=== PATIENT | male | born 1995 | race Caucasian/White ===

== ENCOUNTER 2017-08-28 23:34 | Emergency (ER) | payer SELFPAY ==
[2017-08-29] MEDS ORDERED: OXYCODONE-ACETAMINOPHEN 5-325 MG TABLET PO ONE (01:11)
[2017-08-29] MEDS ORDERED: ONDANSETRON 4 MG TAB.RAPDIS PO ONE (01:11)
[2017-08-29] MEDS ORDERED: NORMAL SALINE 1000 ML 1,000 ML IV ONE (01:12)
--- NOTE | 2017-08-29 01:13 | ER Document Report ---
ED Medical Screen (RME) - General Chief Complaint: Back pain Stated Complaint: BACK PAIN Time Seen by Provider: 08/29/17 01:11 Mode of Arrival: Wheelchair Information source: Patient Notes: Patient presents complaining of right upper quadrant pain that radiates through to his back up to his shoulder for the past 5 days. Patient reports nausea and vomiting 3 episodes today. No fever. Patient does report decreased urine output and states that his urine was very dark in color. TRAVEL OUTSIDE OF THE [place] IN LAST 30 DAYS: No Past Medical History Renal/ Medical History: Denies: Hx Peritoneal Dialysis Physical Exam - Vital signs Vitals: Temp Pulse Resp BP Pulse Ox 98.7 F 118 H 18 143/100 H 98 08/29/17 00:34 08/29/17 00:34 08/29/17 00:34 08/29/17 00:34 08/29/17 00:34 - Abdominal Tenderness: Tender - Right upper quadrant, Guarding Course - Vital Signs Vital signs: Temp Pulse Resp BP Pulse Ox 98.7 F 118 H 18 143/100 H 98 08/29/17 00:34 08/29/17 00:34 08/29/17 00:34 08/29/17 00:34 08/29/17 00:34
[2017-08-29 02:00] LABS: ABSOLUTE BASOPHILS # (AUTO) 0.1 10^3/uL (0.0-0.2); ABSOLUTE EOSINOPHILS # (AUTO) 0.4 10^3/uL (0.0-0.6); ABSOLUTE LYMPHOCYTES (AUTO) 4.1 10^3/uL (0.5-4.7); ABSOLUTE MONOCYTES (AUTO) 0.7 10^3/uL (0.1-1.4); ABSOLUTE NEUT (AUTO) 6.2 10^3/uL (1.7-8.2); EOSINOPHILS % (AUTO) 3.1 % (0-6); HEMATOCRIT 44.9 % (37.9-51.0); HEMOGLOBIN 15.9 g/dL (13.5-17.0); HGB HCT DIFFERENCE 2.8; MEAN CORPUSCULAR HEMOGLOBIN 30.9 pg (27.0-33.4); MEAN CORPUSCULAR HGB CONC 35.5 g/dL (32.0-36.0); MEAN CORPUSCULAR VOLUME 87 fl (80-97); MONOCYTES % (AUTO) 6.5 % (3-13); RED BLOOD COUNT 5.16 10^6/uL (4.35-5.55); RED CELL DISTRIBUTION WIDTH 13.6 % (11.5-14.0); SEGMENTED NEUTROPHILS % (AUTO) 53.4 % (42-78); WHITE BLOOD COUNT 11.5 10^3/uL (4.0-10.5)
[2017-08-29] MEDS ORDERED: ONDANSETRON HCL INJ/PF 4 MG/2 ML SDV IV ONE (02:03)
[2017-08-29] MEDS ORDERED: MORPHINE SULFATE 10 MG/ML INJ IV ONE (02:03)
[2017-08-29 02:12] LABS: ALANINE AMINOTRANSFERASE 53 U/L (21-72); ALBUMIN 4.9 g/dL (3.5-5.0); ALKALINE PHOSPHATASE 69 U/L (38-126); ANION GAP 14 (5-19); APPEARANCE,URINE SLIGHTLY-CLOUDY; ASPARTATE AMINO TRANSFERASE 31 U/L (17-59); BILIRUBIN,DIRECT 0.4 mg/dL (0.0-0.4); BILIRUBIN,TOTAL 0.4 mg/dL (0.2-1.3); BILIRUBIN,URINE NEGATIVE (NEGATIVE); BLOOD UREA NITROGEN 11 mg/dL (7-20); CALCIUM 10.1 mg/dL (8.4-10.2); CARBON DIOXIDE 27 mmol/L (22-30); CHLORIDE 104 mmol/L (98-107); GLUCOSE 105 mg/dL (75-110); GLUCOSE, URINE NEGATIVE (NEGATIVE); KETONES,URINE NEGATIVE (NEGATIVE); LEUKOCYTE ESTERASE,URINE SMALL (NEGATIVE); LIPASE 310.3 U/L (23-300); NITRITE,URINE NEGATIVE (NEGATIVE); POTASSIUM 4.9 mmol/L (3.6-5.0); PROTEIN,URINE 30 mg/dL (NEGATIVE); SODIUM 145.3 mmol/L (137-145); TOTAL PROTEIN 8.1 g/dL (6.3-8.2); UROBILINOGEN,URINE NEGATIVE mg/dL (<2.0)
--- NOTE | 2017-08-29 02:57 | ER Document Report ---
ED General - General Chief Complaint: Back Pain Stated Complaint: BACK PAIN Time Seen by Provider: 08/29/17 01:11 Mode of Arrival: Wheelchair Notes: Patient is a 21-year-old transgender originally female, but is now male and takes testosterone shots. He presents with complaint of pain that starts in his right back and it radiates around his right rib cage into his right upper quadrant of his abdomen. Some nausea vomiting and diarrhea. Pain does not seem to be affected by eating. He says pain is much worse with movements. Said when the pain comes on it is severe and uncomfortable. No fevers associated with this. No difficulty breathing. No associated rashes. No associated trauma. TRAVEL OUTSIDE OF THE [place] IN LAST 30 DAYS: No - Related Data Allergies/Adverse Reactions: baclofen Allergy (Verified 08/29/17 01:55) erythromycin base Allergy (Verified 08/29/17 01:55) Past Medical History - General Information source: Patient - Social History Smoking Status: Unknown if Ever Smoked Frequency of alcohol use: None Drug Abuse: None Family History: Reviewed & Not Pertinent Patient has suicidal ideation: No Patient has homicidal ideation: No Renal/ Medical History: Denies: Hx Peritoneal Dialysis Review of Systems - Review of Systems Notes: My Normal Review Basic REVIEW OF SYSTEMS: CONSTITUTIONAL : Denies fever, chills, or sweats. Denies recent illness. EENT: Denies eye, ear, throat, or mouth pain or symptoms. Denies nasal or sinus congestion. CARDIOVASCULAR: Denies chest pain. RESPIRATORY: Denies cough, cold, or chest congestion. Denies shortness of breath, difficulty breathing, or wheezing. GASTROINTESTINAL: Upper quadrant abdominal pain. Denies nausea, vomiting, or diarrhea. Denies constipation. Last BM: GENITOURINARY: Denies difficulty urinating, painful urination, burning, frequency, or blood in urine. FEMALE GENITOURINARY: Denies vaginal bleeding, abnormal or irregular periods. LMP: MUSCULOSKELETAL: Pain in right back that radiates around the right flank. SKIN: Denies rash or skin lesions. NEUROLOGICAL: Denies altered mental status or loss of consciousness. Denies headache. Denies weakness or paralysis or loss of use of either side. Denies problems with gait or speech. Denies sensory or motor loss. ALL OTHER SYSTEMS REVIEWED AND NEGATIVE. Physical Exam - Vital signs Vitals: Temp Pulse Resp BP Pulse Ox 98.7 F 118 H 18 143/100 H 98 08/29/17 00:34 08/29/17 00:34 08/29/17 00:34 08/29/17 00:34 08/29/17 00:34 - Notes Notes: General Appearance: Well nourished, alert, cooperative, no acute distress, moderate obvious discomfort. Vitals: reviewed, See vital signs table. Head: no swelling or tenderness to the head Eyes: PERRL, EOMI, Conjuctiva clear Mouth: No decreasd moisture Lungs: No wheezing, No rales, No rhonci, No accessory muscle use, good air exchange bilaterally. Heart: Normal rate, Regular rythm, No murmur, no rub Abdomen: Normal BS, soft, No rigidity, very mild right upper quadrant abdominal tenderness palpation. Remainder of abdomen is nontender., No guarding, no rebound, no abdominal masses, no organomegaly Back: Patient has large amount of pain to palpation over the right thoracic paraspinal musculature. This pain continues to be easily reproducible to palpation around the right rib cage. No bruising or swelling or rashes to the right rib cage or back. Extremities: strength 5/5 in all extremities, good pulses in all extremities, no swelling or tenderness in the extremities, no edema. Skin: warm, dry, appropriate color, no rash Neuro: speech clear, oriented x 3, normal affect, responds appropriately to questions. Course - Re-evaluation Re-evalutation: 08/29/17 05:50 Patient's pain on exam does seem very consistent with that of muscular skeletal pain. I did obtain an ultrasound of the upper quadrant she had a little bit of pain rating into the right upper quadrant and I want to make sure it is not his gallbladder causing pain rating to his back. Ultrasound was negative. Laboratory evaluation does not suggest gallbladder at this time. Urinalysis did show some blood and therefore did obtain CT scan to rule out stone. CT scan was negative. I do not think he has urinary tract infection that he has [place] no dysuria. The pain again is very easily reproducible to palpation as all the way up and down the right side of his thoracic spine. He has had this pain many times over the course of the last year. 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 He does have to pick him up and lift him and move him around. 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 This time we will give the patient some pain medication to take. I encouraged him to rest over the next few days. I encouraged him return to ER if his fevers, worsening pain, vomiting, or feels unwell. Patient agrees with plan and will be discharged home. Dictation of this chart was performed using voice recognition software; therefore, there may be some unintended grammatical errors. - Vital Signs Vital signs: Temp Pulse Resp BP Pulse Ox 98.7 F 118 H 21 H 125/92 H 100 08/29/17 00:34 08/29/17 00:34 08/29/17 04:01 08/29/17 04:00 08/29/17 04:01 - Laboratory Result Diagrams: 08/29/17 01:40 08/29/17 01:40 Laboratory results interpreted by me: 08/29/17 08/29/17 08/29/17 01:40 01:40 01:40 WBC 11.5 H Sodium 145.3 H Lipase 310.3 H Urine Protein 30 H Urine Blood SMALL H Ur Leukocyte Esterase SMALL H Urine Ascorbic Acid 40 H Discharge - Discharge Clinical Impression: Fatty liver Back pain Qualifiers: Back pain location: thoracic back pain Chronicity: acute Back pain laterality: right Qualified Code(s): M54.6 - Pain in thoracic spine Abdominal pain Qualifiers: Abdominal location: right upper quadrant Qualified Code(s): R10.11 - Right upper quadrant pain Condition: Good Disposition: HOME, SELF-CARE Additional Instructions: Please take the pain medications as prescribed. Please follow up with your doctor in 3 days. Please return to the ER immediately if you have fevers, worsening pain, difficulty urinating, or if you feel like you are worsening. Prescriptions: Metaxalone [Skelaxin 800 mg Tablet] 800 mg PO ASDIR PRN #20 tablet PRN Reason: Naproxen [Naprosyn 250 mg Tablet] 250 mg PO BID #20 tablet Forms: Return to Work
--- NOTE | 2017-08-29 03:08 | RADIOLOGY REPORT (SQ) ---
EXAM DESCRIPTION: U/S ABDOMEN LIMITED W/O DOP CLINICAL HISTORY: 21 years, Male, RUQ, r flank pain COMPARISON: None. TECHNIQUE: Scale, color Doppler and spectral Doppler waveform analysis techniques were all utilized to perform this examination. LIMITATIONS: None. FINDINGS: No hyperechoic mobile shadowing stones in the incompletely distended gallbladder. Suspect pseudo-gallbladder wall thickening. The common duct is normal and measures 3.1 mm in greatest diameter. No intra or extrahepatic biliary ductal dilatation. Diffuse hepatic fatty infiltration greatly decreases evaluation of the liver. Greatest sagittal dimension of the right hepatic lobe measures 17 cm. The right kidney is normal and measures 10.3 cm x 4.9 cm in greatest sagittal dimension. The pancreas is obscured by bowel gas. There is normal hepatopedal blood flow in the portal vein using color Doppler and spectral Doppler waveform analysis techniques. The abdominal aorta and inferior vena cava are obscured by bowel gas. IMPRESSION: 1. No ultrasonographic evidence of cholelithiasis or cholecystitis. 2. Diffuse hepatic fatty infiltration which greatly limits fine evaluation of the liver. 3. No intra or extrahepatic biliary ductal dilatation. 2011 [employer]- All Rights Reserved
[2017-08-29 04:03] VITALS: BP 125/92
--- NOTE | 2017-08-29 04:35 | RADIOLOGY REPORT (SQ) ---
EXAMINATION: NONCONTRAST ABDOMEN AND PELVIC CT EXAMINATION. REFERRAL DIAGNOSIS: Right lower quadrant abdominal pain. COMPARISONS: Today's limited abdomen ultrasound examination. PROCEDURE: Using low-dose helical technique, thin section axial images were performed through the abdomen and pelvis without the administration of intravenous or oral contrast material. FINDINGS: Punctate 1 mm or less nonobstructing calcification in the right upper renal collecting system. Several other very small linear radiodensities in the right renal collecting system. 5 punctate 1 mm or less nonobstructing calcified stones in the left renal collecting system. No urinary system obstruction or evidence of pyelonephritis on this noncontrast examination. No evidence of appendicitis, diverticulitis, inflammatory bowel disease, bowel obstruction, retroperitoneal hemorrhage, ascites or intra-abdominal abscess on this noncontrast examination. The liver, spleen, fluid-filled gallbladder, pancreas and great vessels are grossly normal. Bones are normal. Lung bases are normal. IMPRESSION: 1. Punctate nonobstructing bilateral renal collecting system stones as described above. No evidence of urinary system obstruction or pyelonephritis on this noncontrast examination. 2. No evidence of appendicitis, diverticulitis or inflammatory bowel disease on this noncontrast examination. If clinical concern persists, post intravenous contrast and post oral contrast abdomen and pelvic CT examination should be considered for further evaluation as clinically warranted.
[2017-08-29] MEDS ORDERED: TRAMADOL HCL 50 MG TABLET PO ONE (04:44)
[2017-08-29] MEDS ORDERED: HYDROCODONE/ACETAMINOPHEN 5-325 MG 6 TAB/DSPK PO PRN (04:46)
== END 2017-08-29 05:02 | disposition home or self-care (01) ==
LOC: ER 23:34
DX: K76.0 Fatty (change of) liver, not elsewhere classified (principal); M54.6 Pain in thoracic spine; R10.11 Right upper quadrant pain; R11.2 Nausea with vomiting, unspecified; R19.7 Diarrhea, unspecified
CPT/HCPCS: 99284; 96361; 96374; 96375; 36415; 87086; 83690; 85025; 80053; 81001; 76705; 76380; J2270; J2405; J7030

== ENCOUNTER 2017-09-01 17:52 | Emergency (ER) | payer SELFPAY ==
[2017-09-01 18:10] VITALS: BP 141/105
[2017-09-01] MEDS ORDERED: OXYCODONE-ACETAMINOPHEN 5-325 MG TABLET PO ONE (18:57)
--- NOTE | 2017-09-01 18:59 | ER Document Report ---
HPI - HPI Patient complains to provider of: Hand injury Onset: Just prior to arrival Onset/Duration: Sudden Quality of pain: Sharp Pain Level: 5 Context: Patient states that he accidentally closed the head of his vehicle on his right hand. Patient is right-hand dominant. Patient complains of pain with moving his fingers and closing his hand into a fist. Associated Symptoms: Nausea, Other - Right hand injury. denies: Vomiting Exacerbated by: Movement Relieved by: Denies Similar symptoms previously: No Recently seen / treated by doctor: No - ROS ROS below otherwise negative: Yes Systems Reviewed and Negative: Yes All other systems reviewed and negative - GASTROINTESTINAL Gastrointestinal: REPORTS: Nausea - MUSCULOSKELETAL Musculoskeletal: REPORTS: Extremity pain, Swelling - DERM Skin Color: Ecchymosis Skin Problems: None Past Medical History - General Information source: Patient - Social History Smoking Status: Never Smoker Frequency of alcohol use: None Drug Abuse: None Occupation: Retail Lives with: Spouse/Significant other Family History: Reviewed & Not Pertinent Patient has suicidal ideation: No Patient has homicidal ideation: No - Medical History Medical History: Negative Renal/ Medical History: Denies: Hx Peritoneal Dialysis Past Surgical History: Reports: Other - Breast surgery with revision Vertical Provider Document - CONSTITUTIONAL Agree With Documented VS: Yes Exam Limitations: No Limitations General Appearance: WD/WN, No Apparent Distress - INFECTION CONTROL TRAVEL OUTSIDE OF THE [place] IN LAST 30 DAYS: No - HEENT HEENT: Atraumatic - NECK Neck: Normal Inspection - RESPIRATORY Respiratory: No Respiratory Distress O2 Sat by Pulse Oximetry: 100 - CARDIOVASCULAR Pulses: Normal: Radial - MUSCULOSKELETAL/EXTREMETIES Musculoskeletal/Extremeties: MAEW, Tender - Right hand tenderness over right third, fourth and fifth MCP joint, patient with mild swelling and ecchymosis to dorsal aspect of right hand., Edema, Eccymosis - NEURO Level of Consciousness: Awake, Alert, Appropriate Motor/Sensory: No Motor Deficit - DERM Integumentary: Warm, Dry, No Rash Course - Vital Signs Vital signs: Temp Pulse Resp BP Pulse Ox 98.1 F 104 H 20 141/105 H 100 09/01/17 18:07 09/01/17 18:07 09/01/17 18:07 09/01/17 18:07 09/01/17 18:07 - Diagnostic Test Radiology reviewed: Image reviewed, Reports reviewed Discharge - Discharge Clinical Impression: Crush injury Hand contusion Qualifiers: Encounter type: initial encounter Laterality: right Qualified Code(s): S60.221A - Contusion of right hand, initial encounter Condition: Stable Disposition: HOME, SELF-CARE Instructions: Contusion ([facility]), Crush Injury ([facility]), Ice & Elevation ([facility]), Oral Narcotic Medication ([facility]) Additional Instructions: Return immediately for any new or worsening symptoms Followup with your primary care provider, call tomorrow to make a followup appointment Follow-up with orthopedic doctor for any continued pain or problems Prescriptions: Oxycodone HCl/Acetaminophen [Percocet 5-325 mg Tablet] 1 tab PO ASDIR PRN #8 tablet PRN Reason: Referrals: PARVEZ GATES DO [ACTIVE STAFF] - Follow up as needed
--- NOTE | 2017-09-01 19:42 | RADIOLOGY REPORT (SQ) ---
EXAM DESCRIPTION: HAND RIGHT 3 VIEWS COMPLETED DATE/TIME: 09/01/2017 7:31 pm REASON FOR STUDY: mayers closed on hand, r 3,4, 5 MCP pain COMPARISON: None. EXAM PARAMETERS: NUMBER OF VIEWS: Three views. TECHNIQUE: AP, lateral and oblique radiographic images acquired of the right hand. LIMITATIONS: None. FINDINGS: MINERALIZATION: Normal. BONES: No acute fracture or dislocation. No worrisome bone lesions. JOINTS: No effusions. SOFT TISSUES: Dorsal soft tissue swelling at the level of the metacarpal heads. OTHER: No other significant finding. IMPRESSION: SOFT TISSUE SWELLING WITHOUT FRACTURE. TECHNICAL DOCUMENTATION: JOB ID: [id number] [employer]- All Rights Reserved
== END 2017-09-01 20:00 | disposition home or self-care (01) ==
LOC: ER 17:52
DX: S60.221A Contusion of right hand, initial encounter (principal); M79.641 Pain in right hand; X58.XXXA Exposure to other specified factors, initial encounter
CPT/HCPCS: 99283

== ENCOUNTER 2017-11-13 00:52 | Emergency (ER) | payer SELFPAY ==
[2017-11-13] MEDS ORDERED: NORMAL SALINE 1000 ML 1,000 ML IV ONE (01:12)
[2017-11-13] MEDS ORDERED: ONDANSETRON HCL INJ/PF 4 MG/2 ML SDV IV ONE (01:12)
[2017-11-13] MEDS ORDERED: KETOROLAC TROMETHAMINE INJ/PF 30 MG/1 ML SDV IV ONE (01:12)
--- NOTE | 2017-11-13 01:16 | ER Document Report ---
ED GI/ - General Chief Complaint: Nausea/Vomiting/Diarrhea Stated Complaint: NAUSEA;VOMITING Time Seen by Provider: 11/13/17 01:04 Notes: Patient is a 22-year-old male that comes emergency department for chief complaint of mid abdominal pain, vomiting, and diarrhea. He states over the past day he has vomited about 5 times, he denies blood in vomit or stool, denies fever, he does report body aches. Symptoms started 5 days ago, he states he was initially evaluated in [place] before coming here, states he was not put on any medications, states they told him it might be food poisoning. He denies any suspicious foods, denies recent antibiotics, denies any daily medications. He reports infrequent alcohol, reports marijuana, denies any other recreational drugs. TRAVEL OUTSIDE OF THE [place] IN LAST 30 DAYS: No - Related Data Allergies/Adverse Reactions: baclofen Allergy (Verified 08/29/17 01:55) erythromycin base Allergy (Verified 08/29/17 01:55) Past Medical History - General Information source: Patient - Social History Smoking Status: Never Smoker Frequency of alcohol use: None Drug Abuse: None Lives with: Family Family History: Reviewed & Not Pertinent - Medical History Medical History: Negative Renal/ Medical History: Denies: Hx Peritoneal Dialysis Past Surgical History: Reports: Other - Breast surgery with revision - Immunizations Immunizations up to date: Yes Hx Diphtheria, Pertussis, Tetanus Vaccination: Yes Review of Systems - Review of Systems Constitutional: See HPI EENT: No symptoms reported Cardiovascular: No symptoms reported Respiratory: No symptoms reported Gastrointestinal: See HPI Genitourinary: No symptoms reported Male Genitourinary: No symptoms reported Musculoskeletal: No symptoms reported Skin: No symptoms reported Hematologic/Lymphatic: No symptoms reported Neurological/Psychological: No symptoms reported Physical Exam - Vital signs Vitals: Temp Pulse BP Pulse Ox 99.0 F 85 144/97 H 99 11/13/17 00:58 11/13/17 00:58 11/13/17 00:58 11/13/17 00:58 Interpretation: Normal - General General appearance: Appears well, Alert - HEENT Head: Normocephalic, Atraumatic Eyes: Normal Pupils: PERRL - Respiratory Respiratory status: No respiratory distress Chest status: Nontender Breath sounds: Normal Chest palpation: Normal - Cardiovascular Rhythm: Regular Heart sounds: Normal auscultation Murmur: No - Abdominal Inspection: Normal Distension: No distension Bowel sounds: Normal Tenderness: Tender - Very mild generalized tenderness in the mid upper abdomen more so on the left side, nonspecific, no guarding, no rigidity or rebound tenderness. No: McBurney's point, Arshad's sign, Guarding Organomegaly: No organomegaly - Back Back: Normal, Nontender. No: Tender, Vertebra tenderness - Extremities General upper extremity: Normal inspection, Nontender, Normal color, Normal ROM , Normal temperature General lower extremity: Normal inspection, Nontender, Normal color, Normal ROM , Normal temperature, Normal weight bearing. No: Tiffani's sign - Neurological Neuro grossly intact: Yes Cognition: Normal Orientation: AAOx4 Marvin Coma Scale Eye Opening: Spontaneous Marvin Coma Scale Verbal: Oriented [place] Coma Scale Motor: Obeys Commands Marvin Coma Scale Total: 15 Speech: Normal Motor strength normal: LUE, RUE, LLE, RLE Sensory: Normal - Psychological Associated symptoms: Normal affect, Normal mood - Skin Skin Temperature: Warm Skin Moisture: Dry Skin Color: Normal Course - Re-evaluation Re-evalutation: Patient is well-appearing. He has mild generalized tenderness over the abdomen which is nonspecific, no guarding, very low suspicion of acute abdomen. Patient actually states that his diarrhea has stopped, he was unable to give a stool sample. Symptoms have decreased from initial frequent vomiting and now he states he just feels nauseated frequently and is worse when he eats. No right upper quadrant tenderness to suggest gallbladder pathology. CBC, chemistry, lipase, urinalysis generally unremarkable. Urine actually shows moderate leukocyte esterase and some white blood cells, patient has no lower abdominal tenderness, dysuria, discharge, or flank pain. Culture placed. Patient treated symptomatically for abdominal pain and nausea, discussed follow- up instructions, discussed return precautions, patient states satisfaction and agreement. - Vital Signs Vital signs: Temp Pulse Resp BP Pulse Ox 99.0 F 88 18 130/78 H 100 11/13/17 00:58 11/13/17 04:38 11/13/17 04:38 11/13/17 04:38 11/13/17 04:38 - Laboratory Result Diagrams: 11/13/17 02:20 11/13/17 02:20 Laboratory results interpreted by me: 11/13/17 11/13/17 11/13/17 02:20 02:20 02:20 WBC 11.0 H Lipase 357.7 H Urine Urobilinogen 2.0 H Ur Leukocyte Esterase MODERATE H Discharge - Discharge Clinical Impression: Vomiting and diarrhea Abdominal pain Qualifiers: Abdominal location: generalized Qualified Code(s): R10.84 - Generalized abdominal pain Condition: Stable Disposition: HOME, SELF-CARE Additional Instructions: Your workup is somewhat nonspecific, I suspect initially had a virus and now have gastritis. Recommendation is to take the Carafate and Pepcid as prescribed , take the Phenergan if needed, take prescribed medications from here only if needed, rest, eat bland foods, drink plenty of fluids. This should resolve with time. Follow-up with primary care. Return if you worsen in anyway including returned or uncontrolled vomiting, vomiting blood, black stools, severe pain, fever, or any other concerning symptoms. Prescriptions: Famotidine [Pepcid 20 mg Tablet] 20 mg PO BID #20 tablet Promethazine HCl [Phenergan 25 mg Tablet] 1 - 2 tab PO Q6H PRN #20 tablet PRN Reason: Sucralfate [Carafate 1 gm Tablet] 1 gm PO QID #20 tablet
[2017-11-13 02:45] LABS: ABSOLUTE BASOPHILS # (AUTO) 0.1 10^3/uL (0.0-0.2); ABSOLUTE EOSINOPHILS # (AUTO) 0.6 10^3/uL (0.0-0.6); ABSOLUTE LYMPHOCYTES (AUTO) 4.1 10^3/uL (0.5-4.7); ABSOLUTE MONOCYTES (AUTO) 0.9 10^3/uL (0.1-1.4); ABSOLUTE NEUT (AUTO) 5.2 10^3/uL (1.7-8.2); EOSINOPHILS % (AUTO) 5.8 % (0-6); HEMATOCRIT 47.9 % (37.9-51.0); HEMOGLOBIN 16.5 g/dL (13.5-17.0); HGB HCT DIFFERENCE 1.6; LYMPHOCYTES % (AUTO) 37.6 % (13-45); MEAN CORPUSCULAR HEMOGLOBIN 29.8 pg (27.0-33.4); MEAN CORPUSCULAR HGB CONC 34.5 g/dL (32.0-36.0); MEAN CORPUSCULAR VOLUME 87 fl (80-97); MONOCYTES % (AUTO) 8.2 % (3-13); RED BLOOD COUNT 5.54 10^6/uL (4.35-5.55); RED CELL DISTRIBUTION WIDTH 12.7 % (11.5-14.0); SEGMENTED NEUTROPHILS % (AUTO) 47.4 % (42-78)
[2017-11-13 02:57] LABS: APPEARANCE,URINE CLEAR; BILIRUBIN,URINE NEGATIVE (NEGATIVE); GLUCOSE, URINE NEGATIVE (NEGATIVE); KETONES,URINE NEGATIVE (NEGATIVE); LEUKOCYTE ESTERASE,URINE MODERATE (NEGATIVE); NITRITE,URINE NEGATIVE (NEGATIVE); PROTEIN,URINE NEGATIVE (NEGATIVE); URINE SPECIFIC GRAVITY 1.017
[2017-11-13 03:03] LABS: ALANINE AMINOTRANSFERASE 48 U/L (21-72); ALBUMIN 4.3 g/dL (3.5-5.0); ALKALINE PHOSPHATASE 64 U/L (38-126); ANION GAP 9 (5-19); ASPARTATE AMINO TRANSFERASE 36 U/L (17-59); BILIRUBIN,DIRECT 0.2 mg/dL (0.0-0.4); BILIRUBIN,TOTAL 0.4 mg/dL (0.2-1.3); BLOOD UREA NITROGEN 12 mg/dL (7-20); CALCIUM 8.8 mg/dL (8.4-10.2); CARBON DIOXIDE 30 mmol/L (22-30); CHLORIDE 104 mmol/L (98-107); CREATININE RESULT 0.88 mg/dL (0.52-1.25); GLUCOSE 83 mg/dL (75-110); LIPASE 357.7 U/L (23-300); POTASSIUM 3.9 mmol/L (3.6-5.0); SODIUM 142.5 mmol/L (137-145); TOTAL PROTEIN 7.1 g/dL (6.3-8.2)
[2017-11-13] MEDS ORDERED: HYDROCODONE/ACETAMINOPHEN 5-325 MG TABLET PO ONE (03:45)
[2017-11-13] MEDS ORDERED: FAMOTIDINE 20 MG TABLET PO ONE (03:45)
[2017-11-13] MEDS ORDERED: SUCRALFATE 1 GM TABLET PO ONE (03:45)
[2017-11-13] MEDS ORDERED: HYDROCODONE/ACETAMINOPHEN 5-325 MG 6 TAB/DSPK PO PRN (03:45)
[2017-11-13 04:39] VITALS: BP 130/78
== END 2017-11-13 04:38 | disposition home or self-care (01) ==
LOC: ER 00:52
DX: R11.2 Nausea with vomiting, unspecified (principal); R19.7 Diarrhea, unspecified; R10.84 Generalized abdominal pain; Z88.1 Allergy status to other antibiotic agents; Z88.8 Allergy status to other drugs, medicaments and biological substances
CPT/HCPCS: 99283; 96361; 96374; 96375; 36415; 87086; 83690; 85025; 80053; 81001; J1885; J2405; J7030

== ENCOUNTER 2017-11-16 06:56 | Emergency (ER) | payer SELFPAY ==
--- NOTE | 2017-11-16 07:33 | ER Document Report ---
ED General - General Chief Complaint: Abdominal Pain Stated Complaint: ABDOMINAL/FLANK PAIN Time Seen by Provider: 11/16/17 07:11 Mode of Arrival: Ambulatory Information source: Patient Notes: 22-year-old transgender male presents with complaints of right-sided flank pain of six-month duration. Patient denies any fevers or chills admits to nausea and vomiting. Patient states that they go to multiple hospitals both in [place] and [place] and have not been able to figure out what is wrong with the kidney. Patient was seen here approximately 4-5 days ago was treated for abdominal pain notes he then had a seizure the same day 1 to [place] where he was treated for the seizure felt fine for a few days then yesterday went back to [place] and was diagnosed with a urinary tract infection but has not taken antibiotics patient denies any urinary symptoms TRAVEL OUTSIDE OF THE U.S. IN LAST 30 DAYS: No - HPI Onset: Other - 6 month duration Onset/Duration: Waxing and waning Quality of pain: Achy Severity: Mild Pain Level: 1 Associated symptoms: Nausea, Vomiting, Other Exacerbated by: Denies Relieved by: Denies Similar symptoms previously: Yes Recently seen / treated by doctor: Yes - Related Data Allergies/Adverse Reactions: baclofen Allergy (Verified 08/29/17 01:55) erythromycin base Allergy (Verified 08/29/17 01:55) Past Medical History - Social History Smoking Status: Current Every Day Smoker Cigarette use (# per day): Yes Chew tobacco use (# tins/day): No Smoking Education Provided: No Family History: Reviewed & Not Pertinent Renal/ Medical History: Denies: Hx Peritoneal Dialysis Past Surgical History: Reports: Other - Breast surgery with revision - Immunizations Immunizations up to date: Yes Hx Diphtheria, Pertussis, Tetanus Vaccination: Yes Review of Systems - Review of Systems Notes: REVIEW OF SYSTEMS: CONSTITUTIONAL : Denies fever, chills, or sweats. Denies recent illness. EENT: Denies eye, ear, throat, or mouth pain or symptoms. Denies nasal or sinus congestion or discharge. Denies throat, tongue, or mouth swelling or difficulty swallowing. CARDIOVASCULAR: Denies chest pain. Denies palpitations or racing or irregular heart beat. Denies ankle edema. RESPIRATORY: Denies cough, cold, or chest congestion. Denies shortness of breath, difficulty breathing, or wheezing. GASTROINTESTINAL: Admits to right flank pain nausea vomiting GENITOURINARY: Denies difficulty urinating, painful urination, burning, frequency, blood in urine, or discharge. MUSCULOSKELETAL: Denies back or neck pain or stiffness. Denies joint pain or swelling. SKIN: Denies rash, lesions or sores. HEMATOLOGIC : Denies easy bruising or bleeding. LYMPHATIC: Denies swollen, enlarged glands. NEUROLOGICAL: Denies confusion or altered mental status. Denies passing out or loss of consciousness. Denies dizziness or lightheadedness. Denies headache. Denies weakness or paralysis or loss of use of either side. Denies problems with gait or speech. Denies sensory loss, numbness, or tingling. Denies seizures. PSYCHIATRIC: Denies anxiety or stress. Denies depression, suicidal ideation, or homicidal ideation. ALL OTHER SYSTEMS REVIEWED AND NEGATIVE. Dictation was performed using [employer] voice recognition software PHYSICAL EXAMINATION: GENERAL: Well-appearing, well-nourished and in no acute distress. HEAD: Atraumatic, normocephalic. EYES: Pupils equal round and reactive to light, extraocular movements intact, sclera anicteric, conjunctiva are normal. ENT: Nares patent, oropharynx clear without exudates. Moist mucous membranes. NECK: Normal range of motion, supple without lymphadenopathy LUNGS: Breath sounds clear to auscultation bilaterally and equal. No wheezes rales or rhonchi. HEART: Regular rate and rhythm without murmurs ABDOMEN: Soft, nontender, nondistended abdomen. No guarding, no rebound. No masses appreciated. Mild right CVA tenderness Musculoskeletal: Normal range of motion, no pitting or edema. No cyanosis. NEUROLOGICAL: Cranial nerves grossly intact. Normal speech, normal gait. Normal sensory, motor exams PSYCH: Normal mood, normal affect. SKIN: Warm, Dry, normal turgor, no rashes or lesions noted. Physical Exam - Vital signs Vitals: Temp Pulse Resp BP Pulse Ox 97.6 F 93 17 132/89 H 99 11/16/17 07:04 11/16/17 07:04 11/16/17 07:04 11/16/17 07:04 11/16/17 07:04 Course - Re-evaluation Re-evalutation: 11/16/17 07:45 I have very low suspicion for any life-threatening issues since these symptoms have been ongoing now for 6 months. I will repeat lab work provide imaging 11/16/17 16:39 CT imaging did note small stones inside the kidney itself, I do not believe this would cause the patient pain, the urinalysis is consistent with a UTI, given that he is having no urinary symptoms but is having flank pain I believe this may be secondary to pyelonephritis as a result. Patient was instructed to take the antibiotics are already written for him which he has not taken yet. Given that otherwise patient looks well is in no distress I believe he is stable for discharge. He will be given follow-up with nephrology as well for further evaluation and care After performing a Medical Screening Examination, I estimate there is LOW risk for EXPANDING OR RUPTURED ABDOMINAL AORTIC ANEURYSM, CAUDA EQUINA SYNDROME, EPIDURAL MASS LESION, or HERNIATED DISK CAUSING SEVERE SPINAL STENOSIS, thus I consider the discharge disposition reasonable. I have reevaluated this patient multiple times and no significant life threatening changes are noted. The patient and I have discussed the diagnosis and risks, and we agree with discharging home and close follow-up. We also discussed returning to the Emergency Department immediately if new or worsening symptoms occur with the understanding that symptoms and presentations can change. We have discussed the symptoms which are most concerning (e.g., saddle anesthesia, urinary or bowel incontinence or retention, changing or worsening pain) that necessitate immediate return. - Vital Signs Vital signs: Temp Pulse Resp BP Pulse Ox 97.6 F 79 17 122/76 100 11/16/17 07:04 11/16/17 09:34 11/16/17 07:04 11/16/17 09:34 11/16/17 09:34 - Laboratory Result Diagrams: 11/16/17 07:25 11/16/17 07:25 Laboratory results interpreted by me: 11/16/17 11/16/17 07:25 07:40 Eosinophils % 7.2 H Urine Glucose (UA) 50 H Urine Blood SMALL H Ur Leukocyte Esterase MODERATE H - Diagnostic Test Radiology reviewed: Image reviewed, Reports reviewed - Report given to patient Discharge - Discharge Clinical Impression: Pyelonephritis Abdominal pain Qualifiers: Abdominal location: unspecified location Qualified Code(s): R10.9 - Unspecified abdominal pain Condition: Stable Disposition: HOME, SELF-CARE Instructions: Pyelonephritis ([facility]) Additional Instructions: Follow up with your physician tomorrow for further care or return to the ED IMMEDIATELY if symptoms worsen or new concerns occur. If you cannot afford to follow up with your primary care physician a list of low cost clinics have been provided at the end of your discharge papers as well. Referrals: KAYLIN BEDOYA MD [ACTIVE STAFF] - Follow up in 3-5 days
[2017-11-16 07:41] LABS: ABSOLUTE BASOPHILS # (AUTO) 0.1 10^3/uL (0.0-0.2); ABSOLUTE EOSINOPHILS # (AUTO) 0.6 10^3/uL (0.0-0.6); ABSOLUTE LYMPHOCYTES (AUTO) 3.3 10^3/uL (0.5-4.7); ABSOLUTE MONOCYTES (AUTO) 0.8 10^3/uL (0.1-1.4); ABSOLUTE NEUT (AUTO) 3.4 10^3/uL (1.7-8.2); BASOPHILS % (AUTO) 0.6 % (0-2); EOSINOPHILS % (AUTO) 7.2 % (0-6); HEMATOCRIT 46.6 % (37.9-51.0); HEMOGLOBIN 16.3 g/dL (13.5-17.0); HGB HCT DIFFERENCE 2.3; LYMPHOCYTES % (AUTO) 40.4 % (13-45); MEAN CORPUSCULAR HEMOGLOBIN 30.2 pg (27.0-33.4); MEAN CORPUSCULAR HGB CONC 34.9 g/dL (32.0-36.0); MEAN CORPUSCULAR VOLUME 87 fl (80-97); MONOCYTES % (AUTO) 9.4 % (3-13); RED BLOOD COUNT 5.38 10^6/uL (4.35-5.55); RED CELL DISTRIBUTION WIDTH 12.5 % (11.5-14.0); SEGMENTED NEUTROPHILS % (AUTO) 42.4 % (42-78); WHITE BLOOD COUNT 8.1 10^3/uL (4.0-10.5)
[2017-11-16 08:07] LABS: APPEARANCE,URINE CLEAR; BILIRUBIN,URINE NEGATIVE (NEGATIVE); GLUCOSE, URINE 50 mg/dL (NEGATIVE); KETONES,URINE NEGATIVE (NEGATIVE); LEUKOCYTE ESTERASE,URINE MODERATE (NEGATIVE); NITRITE,URINE NEGATIVE (NEGATIVE); PROTEIN,URINE NEGATIVE (NEGATIVE); URINE SPECIFIC GRAVITY 1.006; UROBILINOGEN,URINE NEGATIVE mg/dL (<2.0)
[2017-11-16 08:18] LABS: ALANINE AMINOTRANSFERASE 31 U/L (21-72); ALBUMIN 4.3 g/dL (3.5-5.0); ALKALINE PHOSPHATASE 72 U/L (38-126); ANION GAP 10 (5-19); ASPARTATE AMINO TRANSFERASE 23 U/L (17-59); BILIRUBIN,DIRECT 0.3 mg/dL (0.0-0.4); BILIRUBIN,TOTAL 0.3 mg/dL (0.2-1.3); BLOOD UREA NITROGEN 7 mg/dL (7-20); CALCIUM 9.4 mg/dL (8.4-10.2); CARBON DIOXIDE 27 mmol/L (22-30); CHLORIDE 104 mmol/L (98-107); CREATININE RESULT 0.85 mg/dL (0.52-1.25); GLUCOSE 101 mg/dL (75-110); POTASSIUM 4.3 mmol/L (3.6-5.0); SODIUM 141.2 mmol/L (137-145); TOTAL PROTEIN 7.3 g/dL (6.3-8.2)
--- NOTE | 2017-11-16 08:33 | RADIOLOGY REPORT (SQ) ---
EXAM DESCRIPTION: CT ABD/PELVIS NO ORAL OR IV COMPLETED DATE/TIME: 11/16/2017 7:59 am REASON FOR STUDY: right flank pain, gneeralized abd pain COMPARISON: 08/29/2017 CT abdomen pelvis Abdominal ultrasound 08/29/2017 TECHNIQUE: CT scan of the abdomen and pelvis performed without intravenous or oral contrast. Images reviewed with lung, soft tissue, and bone windows. Reconstructed coronal and sagittal MPR images revi ewed. All images stored on PACS. All CT scanners at this facility use dose modulation, iterative reconstruction, and/or weight based d osing when appropriate to reduce radiation dose to as low as reasonably achievable (ALARA). [facility]: Dose Right [facility]: CareDose [facility]: Dose Right [facility]: Teradose 4D [facility]: [employer] RADIATION DOSE: CT Rad equipment meets quality standard of care and radiation dose reduction techniq ues were employed. CTDIvol: 8.0 mGy. DLP: 466 mGy-cm.mGy. LIMITATIONS: None. FINDINGS: LOWER CHEST: No significant findings. No nodules or infiltrates. NON-CONTRASTED LIVER, SPLEEN, ADRENALS: Evaluation limited by lack of IV contrast. No identified sign ificant masses. Low attenuation in the liver from fatty infiltration. PANCREAS: No masses. No peripancreatic inflammatory changes. GALLBLADDER: No identified stones by CT criteria. No inflammatory changes to suggest cholecystitis. RIGHT KIDNEY AND URETER: No suspicious masses. Assessment limited by lack of IV contrast. Tiny intr arenal nonobstructive calculi in the upper pole kidney less than 3 mm in size. No right ureteral simone culi. No hydronephrosis or hydroureter. LEFT KIDNEY AND URETER: No suspicious masses. Assessment limited by lack of IV contrast. Tiny intra renal nonobstructive stones in the upper and lower pole left kidney, less than 2 mm in size. No left ureteral calculi. No hydronephrosis or hydroureter. AORTA AND RETROPERITONEUM: No aneurysm. No retroperitoneal masses or adenopathy. BOWEL AND PERITONEAL CAVITY: No obvious masses or inflammatory changes. No free fluid. APPENDIX: Normal. PELVIS, BLADDER, AND ABDOMINAL WALL:No abnormal masses. No free fluid. Bladder normal. BONES: No significant findings. OTHER: No other significant finding. IMPRESSION: Tiny bilateral intrarenal nonobstructive stones. No ureteral stones. No hydronephrosis or hydroureter. COMMENT: Quality ID # [id number]: Final reports with documentation of one or more dose reduction techniques (e.g., Automated exposure control, adjustment of the mA and/or kV according to patient size, use of iterative reconstruction technique) TECHNICAL DOCUMENTATION: JOB ID: [id number] [email or web address]- All Rights Reserved
[2017-11-16] MEDS ORDERED: MORPHINE SULFATE 10 MG/ML INJ IM ONE (09:25)
[2017-11-16 09:40] VITALS: BP 122/76
== END 2017-11-16 09:57 | disposition home or self-care (01) ==
LOC: ER 06:56
DX: N12 Tubulo-interstitial nephritis, not specified as acute or chronic (principal); N20.0 Calculus of kidney; R10.9 Unspecified abdominal pain; R11.2 Nausea with vomiting, unspecified; F17.210 Nicotine dependence, cigarettes, uncomplicated; Z88.1 Allergy status to other antibiotic agents; Z88.8 Allergy status to other drugs, medicaments and biological substances
CPT/HCPCS: 99284; 96372; 36415; 83690; 85025; 80053; 81001; 74176; J2270

== ENCOUNTER 2017-12-25 13:19 | Emergency (ER) | payer SELFPAY ==
[2017-12-25] MEDS ORDERED: NORMAL SALINE 1000 ML 1,000 ML IV ONE (13:40)
[2017-12-25] MEDS ORDERED: KETOROLAC TROMETHAMINE INJ/PF 30 MG/1 ML SDV IV ONE (13:40)
[2017-12-25] MEDS ORDERED: ONDANSETRON HCL INJ/PF 4 MG/2 ML SDV IV ONE (13:40)
--- NOTE | 2017-12-25 13:45 | ER Document Report ---
ED Medical Screen (RME) - General Chief Complaint: Abdominal Pain Stated Complaint: ABDOMINAL PAIN Time Seen by Provider: 12/25/17 13:39 Mode of Arrival: Ambulatory Information source: Patient TRAVEL OUTSIDE OF THE U.S. IN LAST 30 DAYS: No - HPI Patient complains to provider of: abd pain Onset: Other - pt with L-sided abd pain for the past 4 days with exacerbation this am. Plus nausea - Related Data Allergies/Adverse Reactions: baclofen Allergy (Verified 12/25/17 13:23) erythromycin base Allergy (Verified 12/25/17 13:23) Past Medical History - Social History Frequency of alcohol use: Occasional Drug Abuse: Marijuana Renal/ Medical History: Denies: Hx Peritoneal Dialysis Past Surgical History: Reports: Other - Breast surgery with revision - Immunizations Immunizations up to date: Yes Hx Diphtheria, Pertussis, Tetanus Vaccination: Yes Physical Exam - Vital signs Vitals: Temp Pulse Resp BP Pulse Ox 98.6 F 88 16 138/85 H 100 12/25/17 13:28 12/25/17 13:28 12/25/17 13:28 12/25/17 13:28 12/25/17 13:28 Course - Vital Signs Vital signs: Temp Pulse Resp BP Pulse Ox 98.6 F 88 16 138/85 H 100 12/25/17 13:28 12/25/17 13:28 12/25/17 13:28 12/25/17 13:28 12/25/17 13:28
[2017-12-25 14:39] LABS: ABSOLUTE EOSINOPHILS # (AUTO) 0.4 10^3/uL (0.0-0.6); ABSOLUTE LYMPHOCYTES (AUTO) 2.5 10^3/uL (0.5-4.7); ABSOLUTE MONOCYTES (AUTO) 0.3 10^3/uL (0.1-1.4); ABSOLUTE NEUT (AUTO) 4.5 10^3/uL (1.7-8.2); BASOPHILS % (AUTO) 0.6 % (0-2); EOSINOPHILS % (AUTO) 4.8 % (0-6); HEMATOCRIT 43.5 % (37.9-51.0); HEMOGLOBIN 15.2 g/dL (13.5-17.0); LYMPHOCYTES % (AUTO) 32.2 % (13-45); MEAN CORPUSCULAR HEMOGLOBIN 29.7 pg (27.0-33.4); MEAN CORPUSCULAR HGB CONC 34.9 g/dL (32.0-36.0); MEAN CORPUSCULAR VOLUME 85 fl (80-97); MONOCYTES % (AUTO) 4.3 % (3-13); PLATELET COUNT 195 10^3/uL (150-450); RED BLOOD COUNT 5.11 10^6/uL (4.35-5.55); RED CELL DISTRIBUTION WIDTH 13.1 % (11.5-14.0); SEGMENTED NEUTROPHILS % (AUTO) 58.1 % (42-78); TOTAL CELLS COUNTED % (AUTO) 100 %; WHITE BLOOD COUNT 7.8 10^3/uL (4.0-10.5)
[2017-12-25 14:54] LABS: APPEARANCE,URINE SLIGHTLY-CLOUDY; BILIRUBIN,URINE NEGATIVE (NEGATIVE); COLOR,URINE YELLOW; GLUCOSE, URINE NEGATIVE (NEGATIVE); KETONES,URINE NEGATIVE (NEGATIVE); LEUKOCYTE ESTERASE,URINE NEGATIVE (NEGATIVE); NITRITE,URINE NEGATIVE (NEGATIVE); PROTEIN,URINE NEGATIVE (NEGATIVE); URINE SPECIFIC GRAVITY 1.006; UROBILINOGEN,URINE NEGATIVE mg/dL (<2.0)
[2017-12-25 15:00] LABS: ALANINE AMINOTRANSFERASE 76 U/L (21-72); ALBUMIN 4.7 g/dL (3.5-5.0); ALKALINE PHOSPHATASE 76 U/L (38-126); ANION GAP 11 (5-19); ASPARTATE AMINO TRANSFERASE 37 U/L (17-59); BILIRUBIN,DIRECT 0.2 mg/dL (0.0-0.4); BILIRUBIN,TOTAL 0.3 mg/dL (0.2-1.3); BLOOD UREA NITROGEN 7 mg/dL (7-20); CARBON DIOXIDE 30 mmol/L (22-30); CHLORIDE 101 mmol/L (98-107); GLUCOSE 97 mg/dL (75-110); LIPASE 164.9 U/L (23-300); POTASSIUM 4.2 mmol/L (3.6-5.0); SODIUM 141.9 mmol/L (137-145); TOTAL PROTEIN 7.5 g/dL (6.3-8.2)
--- NOTE | 2017-12-25 15:31 | ER Document Report ---
ED General - General Mode of Arrival: Ambulatory TRAVEL OUTSIDE OF THE U.S. IN LAST 30 DAYS: No <RANJAN PALMA - Last Filed: 12/25/17 19:11> <ANNY PATEL - Last Filed: 12/25/17 22:00> - General Chief Complaint: Abdominal Pain Stated Complaint: ABDOMINAL PAIN Time Seen by Provider: 12/25/17 13:39 - HPI Notes: 22-year-old transgender male presents today with complaints of left lower quadrant pain that has been occurring for the last 4-5 days. Patient reports he was seen in [facility], where he was told he had a left ovarian cyst ago when he was being seen for having right flank pain. Patient still has his female anatomy. Denies any fevers or chills. Reports nausea. denies vomiting, diarrhea. Denies any chest pain, shortness of breath, back pain, flank pain, hematuria, dizziness, blurred vision, double vision, loss of vision and lightheadedness. Denies any rashes. Denies any trauma. denies any history of PCOS, endometriosis or interstitial cystitis, etc (RANJAN PALMA) - Related Data Allergies/Adverse Reactions: baclofen Allergy (Verified 12/25/17 13:23) erythromycin base Allergy (Verified 12/25/17 13:23) Past Medical History - General Information source: Patient - Social History Smoking Status: Current Some Day Smoker Frequency of alcohol use: Occasional Drug Abuse: Marijuana Family History: Reviewed & Not Pertinent Patient has suicidal ideation: No Patient has homicidal ideation: No Renal/ Medical History: Denies: Hx Peritoneal Dialysis Past Surgical History: Reports: Other - Breast surgery with revision - Immunizations Immunizations up to date: Yes Hx Diphtheria, Pertussis, Tetanus Vaccination: Yes <RANJAN PALMA - Last Filed: 12/25/17 19:11> Review of Systems - Review of Systems Constitutional: No symptoms reported EENT: No symptoms reported Cardiovascular: No symptoms reported Respiratory: No symptoms reported Gastrointestinal: See HPI Genitourinary: See HPI Male Genitourinary: No symptoms reported Musculoskeletal: No symptoms reported Skin: No symptoms reported Hematologic/Lymphatic: No symptoms reported Neurological/Psychological: No symptoms reported <RANJAN PALMA - Last Filed: 12/25/17 19:11> Physical Exam - General General appearance: Appears well In distress: Mild - Respiratory Respiratory status: No respiratory distress Chest status: Nontender Breath sounds: Normal Chest palpation: Normal - Cardiovascular Rhythm: Regular Heart sounds: Normal auscultation Murmur: No Normal capillary refill: Yes - Abdominal Inspection: Normal Distension: No distension Tenderness: Tender - LLQ pain, umbilical pain. no cva tenderness. - Back Back: Normal, Nontender. No: CVA tenderness - Extremities General upper extremity: Normal inspection, Nontender, Normal strength, Normal temperature General lower extremity: Normal inspection, Nontender, Normal strength, Normal temperature - Neurological Neuro grossly intact: Yes Cognition: Normal Orientation: AAOx4 - Psychological Associated symptoms: Normal affect, Normal mood - Skin Skin Temperature: Warm Skin Moisture: Dry Skin Color: Normal <RANJAN PALMA - Last Filed: 12/25/17 19:11> - Vital signs Vitals: Temp Pulse Resp BP Pulse Ox 98.6 F 88 16 138/85 H 100 12/25/17 13:28 12/25/17 13:28 12/25/17 13:28 12/25/17 13:28 12/25/17 13:28 Course - Laboratory Result Diagrams: 12/25/17 14:00 12/25/17 14:00 <RANJAN PALMA - Last Filed: 12/25/17 19:11> - Laboratory Result Diagrams: 12/25/17 14:00 12/25/17 14:00 <ANNY PATEL - Last Filed: 12/25/17 22:00> - Re-evaluation Re-evalutation: 12/25/17 18:33 After reevaluation of patient, he states he felt better after the morphine but still having some pain. Patient reports that the pain on the left lower quadrant is still present, discussed with patient that there is a left ovarian cyst approximately 5 cm and we are still waiting for ultrasound to take patient. Laboratory findings are negative for any acute findings such as pancreatitis, leukocytosis, UTI 1800-called ultrasound to see when patient could come up, u/s she is cleaning the room and will bring her down shortly. findings show that he does have bacterial vaginitis. 1845- patient up to ultrasound 12/25/17 18:51 12/25/17 19:11 disposition given to PA. Andreas (RANJAN PALMA) 12/25/17 20:48 Patient's ultrasound does reveal a 5.3 cm left ovarian cyst with normal Doppler flow to left ovary and no concern for torsion. A beta-hCG was also sent given that patient is still an anatomical female which did come back negative. Did review the results with the patient and discussed with her that even though she is on the testosterone injections that she still has functional ovarian tissue and that this is likely related to her cycle. Discussed with her to follow-up with [facility] and discussed pain management at home. Patient agrees with plan and is stable for discharge home (ANNY PATEL) - Vital Signs Vital signs: Temp Pulse Resp BP Pulse Ox 98.6 F 56 L 18 112/79 98 12/25/17 18:10 12/25/17 18:10 12/25/17 18:10 12/25/17 18:10 12/25/17 18:10 - Laboratory Laboratory results interpreted by me: 12/25/17 14:00 ALT 76 H Discharge <RANJAN PALMA - Last Filed: 12/25/17 19:11> <ANNY PATEL - Last Filed: 12/25/17 22:00> - Discharge Clinical Impression: bacterial vaginosis, left ovarian cyst Condition: Good Disposition: HOME, SELF-CARE Instructions: Abdominal Pain ([facility]), Ovarian Cyst ([facility]), Vaginal Yeast Infection ([facility]), Vaginosis, Bacterial ([facility]) Additional Instructions: Your symptoms are consistent with ovarian cyst and you should follow-up with an [facility] INS[facility].please take medications as directed. Return to the emergency department with any signs of vaginal bleeding, worsening pelvic pain, fever, chills, any symptoms that are worrisome to you. Prescriptions: Ketorolac Tromethamine [Toradol 10 mg Tablet] 10 mg PO Q8HP PRN #15 tablet PRN Reason: Fluconazole [Diflucan] 150 mg PO ONCE PRN #1 tablet PRN Reason: Metronidazole 500 mg PO BID #14 tablet Forms: Return to Work Referrals: ELE VILLAGRAN MD [ACTIVE STAFF] - Follow up in 3-5 days
[2017-12-25] MEDS ORDERED: MORPHINE SULFATE 10 MG/ML INJ IV ONE ×2 (15:52→18:07)
--- NOTE | 2017-12-25 15:52 | RADIOLOGY REPORT (SQ) ---
EXAM DESCRIPTION: CT ABD/PELVIS WITH IV ONLY COMPLETED DATE/TIME: 12/25/2017 3:38 pm REASON FOR STUDY: abd pain COMPARISON: None. TECHNIQUE: CT scan of the abdomen and pelvis performed using helical scanning technique with dynamic intravenous contrast injection. No oral contrast. Images reviewed with lung, soft tissue, and bone windows. Reconstructed coronal and sagittal MPR images reviewed. Delayed images for evaluation of the urinary system also acquired. All images stored on PACS. All CT scanners at this facility use dose modulation, iterative reconstruction, and/or weight based d osing when appropriate to reduce radiation dose to as low as reasonably achievable (ALARA). [facility]: Dose Right [facility]: CareDose [facility]: Dose Right [facility]: Teradose 4D [facility]: [employer] CONTRAST TYPE AND DOSE: contrast/concentration: Isovue 370.00 mg/ml; Total Contrast Delivered: 86.0 ml; Total Saline Delivered: 69.0 ml RENAL FUNCTION: None required. The patient is less than 50 years old. RADIATION DOSE: CT Rad equipment meets quality standard of care and radiation dose reduction techniq ues were employed. CTDIvol: 6.9 - 9.7 mGy. DLP: 914 mGy-cm.. LIMITATIONS: None. FINDINGS: LOWER CHEST: No significant findings. No nodules or infiltrates. LIVER: Steatosis. Normal size. No masses. No dilated ducts. SPLEEN: Normal size. No focal lesions. PANCREAS: No masses. No significant calcifications. No adjacent inflammation or peripancreatic fluid collections. Pancreatic duct not dilated. GALLBLADDER: No identified stones by CT criteria. No inflammatory changes to suggest cholecystitis. ADRENAL GLANDS: No significant masses or asymmetry. RIGHT KIDNEY AND URETER: No solid masses. No significant calcifications. No hydronephrosis or hyd roureter. LEFT KIDNEY AND URETER: No solid masses. No significant calcifications. No hydronephrosis or hydr oureter. AORTA AND VESSELS: No aneurysm. No dissection. Renal arteries, SMA, celiac without stenosis. RETROPERITONEUM: No retroperitoneal adenopathy, hemorrhage or masses. BOWEL AND PERITONEAL CAVITY: No masses or inflammatory changes. No free fluid or peritoneal masses. APPENDIX: Normal. PELVIS: 5.5 simple appearing cyst left ovary. ABDOMINAL WALL: No masses. No hernias. BONES: No significant or acute findings. OTHER: No other significant finding. IMPRESSION: 5.5 cm left ovarian cyst. No acute findings. TECHNICAL DOCUMENTATION: JOB ID: [id number] Quality ID # [id number]: Final reports with documentation of one or more dose reduction techniques (e.g., Au tomated exposure control, adjustment of the mA and/or kV according to patient size, use of iterative reconstruction technique) 2010 [employer]- All Rights Reserved
[2017-12-25 16:53] LABS: BACTERIA (WET MOUNT) 4+ BACTERIA SEEN; EPITHELIALS (WET MOUNT) 3+ EPITHELIALS SEEN; T.VAGINALIS (WET MOUNT) NO TRICHOMONAS SEEN; WBCS (WET MOUNT) 1+ WBCS SEEN; YEAST (WET MOUNT) YEAST SEEN
[2017-12-25 18:19] LABS: CHLAM PCR NOT DETECTED (NOT DETECT); GON PCR NOT DETECTED (NOT DETECT)
--- NOTE | 2017-12-25 20:11 | RADIOLOGY REPORT (SQ) ---
EXAM DESCRIPTION: U/S NON-OB PELVIS W/O DOP COMPLETED DATE/TIME: 12/25/2017 7:48 pm REASON FOR STUDY: LLQ pain with ovarian cyst COMPARISON: CT abdomen pelvis 08/29/2017, 11/16/2017, 12/25/2017 TECHNIQUE: Dynamic and static grayscale images acquired of the pelvis via transabdominal approach an d recorded on PACS. Additional selected color Doppler and spectral images recorded. LIMITATIONS: Pelvic bowel gas FINDINGS: UTERUS: Contour normal. No mass. Uterus is 6 x 4.3 x 3.3 cm in size ENDOMETRIAL STRIPE: Not well seen due to pelvic bowel gas shadowing CERVIX: No nabothian cysts. Closed, 2.9 cm in length. RIGHT OVARY: No abnormal masses. Right ovary 3.9 x 2.7 x 2.6 cm in size. RIGHT OVARY DOPPLER: Normal color flow. LEFT OVARY: Left ovary 5.3 x 5.4 x 5.5 cm in size. There is a 5.3 x 4.5 cm left ovarian cyst which c orrelates with the findings on CT earlier today. LEFT OVARY DOPPLER: Normal color flow. FREE FLUID: None noted. OTHER: No other significant finding. IMPRESSION: 5.3 X 4.5 CM LEFT OVARIAN CYST. OTHERWISE, UNREMARKABLE PELVIC ULTRASOUND BY TRANSABDOMINAL TECHNIQUE. TECHNICAL DOCUMENTATION: JOB ID: [id number]- All Rights Reserved
[2017-12-25] MEDS ORDERED: HYDROCODONE/ACETAMINOPHEN 5-325 MG TABLET PO ONE (20:53)
[2017-12-25] MEDS ORDERED: HYDROCODONE/ACETAMINOPHEN 5-325 MG (6 TAB/ER DISP) PO PRN (20:53)
[2017-12-25 22:07] VITALS: BP 136/97
== END 2017-12-25 22:05 | disposition home or self-care (01) ==
LOC: EDSEX → ER 13:19
DX: N76.0 Acute vaginitis (principal); B96.89 Other specified bacterial agents as the cause of diseases classified elsewhere; R10.9 Unspecified abdominal pain; R10.32 Left lower quadrant pain; R11.0 Nausea; F64.9 Gender identity disorder, unspecified; F17.200 Nicotine dependence, unspecified, uncomplicated
CPT/HCPCS: 96376; 99284; 96361; 96374; 96375; 36415; 87210; 83690; 85025; 81025; 80053; 81001; 87491; 87591; 76856; 74177; J1885; J2270; J2405; J7030

== ENCOUNTER 2018-01-04 20:28 | Emergency (ER) | payer SELFPAY ==
--- NOTE | 2018-01-04 23:33 | RADIOLOGY REPORT (SQ) ---
EXAM DESCRIPTION: U/S NON OB PEL TV W/DOPPLER COMPLETED DATE/TIME: 01/04/2018 10:53 pm REASON FOR STUDY: severe pelvic pain COMPARISON: 12/25/2017 TECHNIQUE: Dynamic and static grayscale images acquired of the pelvis via transvaginal approach and recorded on PACS. Additional selected color Doppler and spectral images recorded. LIMITATIONS: None. FINDINGS: UTERUS: Contour normal. No mass. ENDOMETRIAL STRIPE: No focal or generalized thickening. No masses. CERVIX: No nabothian cysts. RIGHT OVARY: No abnormal masses. RIGHT OVARY DOPPLER: Normal arterial vascular flow without evidence for torsion. LEFT OVARY: Diminished left ovarian cyst currently measuring 3.2 cm greatest dimension with adjacent free fluid consistent with cyst rupture. LEFT OVARY DOPPLER: Normal arterial vascular flow without evidence for torsion. FREE FLUID: Mild free fluid in the cul-de-sac and left adnexa. OTHER: No other significant finding. MEASUREMENTS: UTERUS: 5.7 x 4.1 x 3.6 cm ENDOMETRIAL STRIPE: 11 mm RIGHT OVARY: 3.8 x 2.4 x 2.2 cm LEFT OVARY: 4.3 x 2.6 x 2.2 cm IMPRESSION: Diminished left ovarian cyst currently measuring 3.2 cm greatest dimension, previously 5 .3 cm, with adjacent free fluid consistent with cyst rupture. TECHNICAL DOCUMENTATION: JOB ID: [id number] [id number] 2010 [employer]- All Rights Reserved
[2018-01-04 23:55] LABS: ABSOLUTE BASOPHILS # (AUTO) 0.1 10^3/uL (0.0-0.2); ABSOLUTE EOSINOPHILS # (AUTO) 0.4 10^3/uL (0.0-0.6); ABSOLUTE LYMPHOCYTES (AUTO) 3.5 10^3/uL (0.5-4.7); ABSOLUTE MONOCYTES (AUTO) 0.7 10^3/uL (0.1-1.4); ABSOLUTE NEUT (AUTO) 7.2 10^3/uL (1.7-8.2); BASOPHILS % (AUTO) 0.6 % (0-2); EOSINOPHILS % (AUTO) 3.2 % (0-6); HEMATOCRIT 41.3 % (37.9-51.0); HEMOGLOBIN 14.3 g/dL (13.5-17.0); LYMPHOCYTES % (AUTO) 29.5 % (13-45); MEAN CORPUSCULAR HEMOGLOBIN 29.1 pg (27.0-33.4); MEAN CORPUSCULAR HGB CONC 34.6 g/dL (32.0-36.0); MEAN CORPUSCULAR VOLUME 84 fl (80-97); PLATELET COUNT 221 10^3/uL (150-450); RED BLOOD COUNT 4.91 10^6/uL (4.35-5.55); RED CELL DISTRIBUTION WIDTH 13.5 % (11.5-14.0); SEGMENTED NEUTROPHILS % (AUTO) 60.7 % (42-78); TOTAL CELLS COUNTED % (AUTO) 100 %; WHITE BLOOD COUNT 11.9 10^3/uL (4.0-10.5)
[2018-01-05 00:14] LABS: ALANINE AMINOTRANSFERASE 54 U/L (21-72); ALBUMIN 4.8 g/dL (3.5-5.0); ALKALINE PHOSPHATASE 70 U/L (38-126); ANION GAP 13 (5-19); ASPARTATE AMINO TRANSFERASE 32 U/L (17-59); BILIRUBIN,DIRECT 0.2 mg/dL (0.0-0.4); BILIRUBIN,TOTAL 0.3 mg/dL (0.2-1.3); BLOOD UREA NITROGEN 13 mg/dL (7-20); CALCIUM 9.5 mg/dL (8.4-10.2); CARBON DIOXIDE 22 mmol/L (22-30); CHLORIDE 104 mmol/L (98-107); GLUCOSE 95 mg/dL (75-110); POTASSIUM 4.2 mmol/L (3.6-5.0); SODIUM 139.2 mmol/L (137-145); TOTAL PROTEIN 7.5 g/dL (6.3-8.2)
[2018-01-05] MEDS ORDERED: ACETAMINOPHEN 325 MG TABLET PO ONE (00:19)
[2018-01-05] MEDS ORDERED: MORPHINE SULFATE IR 15 MG TABLET PO ONE (00:19)
[2018-01-05] MEDS ORDERED: IBUPROFEN 600 MG TABLET PO ONE (00:21)
--- NOTE | 2018-01-05 00:27 | ER Document Report ---
ED General - General Chief Complaint: Abdominal Pain Stated Complaint: ABDOMINAL PAIN Time Seen by Provider: 01/04/18 21:59 Notes: Patient is a 22-year-old female who identifies as a male who presents with 1-1/ 2 years of right lower abdominal and upper back pain as well as an acute onset of left lower quadrant abdominal pain radiating to the right lower quadrant. He describes this as a constant, aching, throbbing pain that dropped him to his knees while in [employer]. He has been trying Tylenol and ibuprofen without any improvement. Nothing worsens the symptoms. He denies any vomiting, diarrhea, fever or constitutional symptoms. No vaginal bleeding or discharge. He has not seen his general doctor regarding these concerns although he has been evaluated in the emergency department on multiple occasions for these concerns with multiple images demonstrating ovarian cysts. TRAVEL OUTSIDE OF THE [place] IN LAST 30 DAYS: No - Related Data Allergies/Adverse Reactions: baclofen Allergy (Verified 12/25/17 13:23) erythromycin base Allergy (Verified 12/25/17 13:23) Past Medical History - General Information source: Patient - Social History Smoking Status: Current Some Day Smoker Chew tobacco use (# tins/day): No Frequency of alcohol use: None Drug Abuse: None Lives with: Spouse/Significant other Family History: Reviewed & Not Pertinent Patient has suicidal ideation: No Patient has homicidal ideation: No Renal/ Medical History: Denies: Hx Peritoneal Dialysis Past Surgical History: Reports: Other - Breast surgery with revision - Immunizations Immunizations up to date: Yes Hx Diphtheria, Pertussis, Tetanus Vaccination: Yes Review of Systems - Review of Systems Notes: Constitutional: Negative for fever. HENT: Negative for sore throat. Eyes: Negative for visual changes. Cardiovascular: Negative for chest pain. Respiratory: Negative for shortness of breath. Gastrointestinal: Positive for abdominal pain Genitourinary: Negative for dysuria. Musculoskeletal: Negative for back pain. Skin: Negative for rash. Neurological: Negative for headaches, weakness or numbness. 10 point ROS negative except as marked above and in HPI. Physical Exam - Vital signs Vitals: Temp Pulse Resp BP Pulse Ox 98.8 F 85 22 H 110/67 97 01/04/18 21:34 01/04/18 21:34 01/04/18 21:34 01/04/18 21:34 02/08/18 21:34 Interpretation: Normal Notes: PHYSICAL EXAMINATION: GENERAL: Well-appearing, well-nourished and in no acute distress. HEAD: Atraumatic, normocephalic. EYES: Pupils equal round and reactive to light, extraocular movements intact, sclera anicteric, conjunctiva are normal. ENT: nares patent, oropharynx clear without exudates. Moist mucous membranes. NECK: Normal range of motion, supple without lymphadenopathy LUNGS: Breath sounds clear to auscultation bilaterally and equal. No wheezes rales or rhonchi. HEART: Regular rate and rhythm without murmurs ABDOMEN: Soft, diffuse lower abdominal tenderness without any localization of the pain, normoactive bowel sounds. No guarding, no rebound. No masses appreciated. EXTREMITIES: Normal range of motion, no pitting or edema. No cyanosis. NEUROLOGICAL: No focal neurological deficits. Moves all extremities spontaneously and on command. PSYCH: Normal mood, normal affect. SKIN: Warm, Dry, normal turgor, no rashes or lesions noted. Course - Re-evaluation Re-evalutation: 01/05/18 00:23 Patient presents with diffuse lower abdominal pain worse towards the left than the right side. Diffuse bilateral adnexal tenderness on palpation but no rebound or guarding. Patient is otherwise well in appearance, vitals normal limits, no acute distress. The patient has had 2 CTs of his abdomen and pelvis as well as 2 ultrasounds in the span of less than 3 months. Today's transvaginal ultrasound does show a ruptured left ovarian cyst which I suspect is the etiology of the acute worsening of his left-sided pain. Labs are otherwise unremarkable. Tolerated oral intake without difficulty. I do not suspect an acute appendicitis, mesenteric ischemia, bowel obstruction, acute diverticulitis, pelvic inflammatory disease, acute pyelonephritis or nephrolithiasis based on exam and history. At this time will discharge with return precautions and follow-up recommendations. Verbal discharge instructions given a the bedside and opportunity for questions given. Medication warnings reviewed. Patient is in agreement with this plan and has verbalized understanding of return precautions and the need for primary care follow-up in the next 24-72 hours. - Vital Signs Vital signs: Temp Pulse Resp BP Pulse Ox 98.3 F 78 19 119/73 100 01/05/18 01:02 01/05/18 01:02 01/05/18 01:02 01/05/18 01:02 01/05/18 01:02 - Laboratory Result Diagrams: 01/04/18 23:46 01/04/18 23:46 Laboratory results interpreted by me: 01/04/18 23:46 WBC 11.9 H - Diagnostic Test Radiology reviewed: Reports reviewed Discharge - Discharge Clinical Impression: Ruptured ovarian cyst, Lower abdominal pain Condition: Good Disposition: HOME, SELF-CARE Additional Instructions: You have been seen in the Emergency Department (ED) for abdominal pain. Your ultrasound does show a ruptured left ovarian cyst which is likely causing your pain. For your pain: Take ibuprofen 600 mg and acetaminophen 1000 mg every 6 hours together as needed for pain. If this does not control your pain you may take 15 mg of oral morphine every 4 hours as needed. Please be very careful about using the oral morphine and only use this for severe pain. Please follow up with your doctor as soon as possible regarding today's emergent visit and the symptoms that are bothering you. Return to the ED if your abdominal pain worsens or fails to improve, you develop bloody vomiting, bloody diarrhea, you are unable to tolerate fluids due to vomiting, fever greater than 101, or other symptoms that concern you. Prescriptions: Morphine Sulfate [Morphine Ir 15 mg Tablet] 15 mg PO Q4HP PRN #6 tablet PRN Reason:
[2018-01-05 01:03] VITALS: BP 119/73
== END 2018-01-05 01:02 | disposition home or self-care (01) ==
LOC: EDSEX → ER 20:28
DX: N83.201 Unspecified ovarian cyst, right side (principal); R10.32 Left lower quadrant pain; R10.31 Right lower quadrant pain; M54.89 Other dorsalgia; F17.200 Nicotine dependence, unspecified, uncomplicated; Z88.1 Allergy status to other antibiotic agents; Z88.8 Allergy status to other drugs, medicaments and biological substances
CPT/HCPCS: 36415; 76830; 80053; 85025; 93976; 99284